=== PATIENT | female | born 1950 | race Caucasian/White ===

== ENCOUNTER 2023-03-06 11:03 | Emergency (ER) | payer MEDICAID, SELFPAY ==
[2023-03-06 11:15] VITALS: BP 162/65; PULSE 71; RESP 16; TEMP 36.1; O2SAT 97; BMI 23.2
--- NOTE | 2023-03-06 11:40 | CRLHL7_ITS ---
For Patients: As a result of the Century Cures Act, medical imaging exams and procedure reports are released immediately into your electronic medical record. You may view this report before your referring provider. If you have questions, please contact your health care provider. INDICATION: Left flank and left upper quadrant pain. Left lower rib pain TECHNIQUE: Axial images were obtained from the diaphragm to the pubic symphysis. Reformats were obtained in the coronal and sagittal plane. IV Contrast: 58 cc Isovue 370 Oral Contrast: None COMPARISON: None. FINDINGS: Lower chest: Basilar discoid atelectasis. Liver: Unremarkable. Normal in size and attenuation. No masses. Gallbladder and bile ducts: Unremarkable. No stones or inflammation. No biliary dilatation. Spleen: Unremarkable. Normal in size without mass. Pancreas: Unremarkable. No mass or inflammation. Adrenal glands: Right adrenal heterogeneous nodule measuring 2.8 x 2.1 centimeters. Kidneys: Unremarkable. No masses, stones, or hydronephrosis. Vasculature: Atherosclerosis without abdominal aortic aneurysm. GI tract: Stomach is unremarkable. No dilated loops of large or small intestine with a large amount of stool within the colon. Underlying colonic diverticulosis. Normal appendix. Pelvis: Fat containing left indirect inguinal hernia. Bones: Facet hypertrophy L5-S1 with 5 millimeter anterolisthesis. IMPRESSION: 1. Colonic diverticulosis without CT evidence of diverticulitis. 2. Right adrenal lesion measuring 2.8 x 2.1 centimeters. Follow-up outpatient adrenal MRI suggested for further characterization. 3. Fat containing left indirect inguinal hernia. Please note that all CT scans at this facility use dose modulation, iterative reconstruction, and/or weight-based dosing when appropriate to reduce radiation dose to as low as reasonably achievable. Dictated by Fred Huertas MD @ 03/06/2023 2:00:17 PM (Electronically Signed)
[2023-03-06 11:59] LABS: Creatinine, Point-of-Care* 0.4 mg/dl (0.6-1.3)
--- NOTE | 2023-03-06 12:07 | ED_ITS ---
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 She states 5 days ago she felt like she was choking on her own saliva low so she hit her abdomen up against the back rest of a chair to get her to cough it up. About 2 hours after that she noticed left flank pain /left rib pain. She states it is very tender to palpation at 1 spot in particular. She has been taking Tylenol and ibuprofen for pain and last took Advil at 6 o'clock this morning. Has had some improvement in her pain. denies nausea, vomiting, weakness, lightheadedness, dizziness, chest pain, shortness of breath, diarrhea, constipation, melena, hematochezia, dysuria. States in June concern is this rib pain that she feels like is getting worse. She thought she heard a crack when it 1st happened. Related Data Home Medications Medication Instructions Recorded Confirmed aspirin 81 mg tablet,delayed 81 mg PO DAILY 03/06/23 03/06/23 release atorvastatin 40 mg tablet 40 mg PO DAILY 03/06/23 03/06/23 lisinopril 10 1 tab PO DAILY 03/06/23 03/06/23 mg-hydrochlorothiazide 12.5 mg tablet metformin 500 mg tablet,extended 1,500 mg PO QPM 03/06/23 03/06/23 release 24 hr Allergies Allergy/AdvReac Type Severity Reaction Status Date / Time No Known Drug Allergies Allergy Verified 03/06/23 11:24 Review of Systems Status of ROS: Reports: 10 or more systems reviewed and unremarkable except as noted in History and below [facility] Medical History Hyperlipidemia ?E78.5 - Hyperlipidemia, unspecified (ICD-10) Hypertension ?I10 - Essential (primary) hypertension (ICD-10) Diabetes ?E11.9 - Type 2 diabetes mellitus without complications (ICD-10) Social History Smoking Status: Never smoker Do you use any of these nicotine containing products: None How often do you have a drink containing alcohol: never How often do you have six or more drinks on one occasion: Never AUDIT-C Alcohol total score: 0 Non-prescribed substance use: denies use Exam Narrative: Exam Narrative: Const: Well-nourished, Well-developed, in mild distress Eyes: PERRL, no conjunctival injection, and symmetrical lids HENT: Atraumatic external nose and ears. Moist mucous membranes. Neck: Symmetric, trachea midline, No thyromegaly. CVS: RRR, No murmurs or gallops. Peripheral pulses 2+ and equal in all extremities RESP: Unlabored respiratory effort. Clear to auscultation bilaterally. GI: For focal tenderness to left upper quadrant/ left flank, appears to be right at the tip of rib 12Nondistended, No rebound or guarding. MSK:Extremities w/o deformity, Normal Active ROM Skin: Warm, Dry. No rashes or lesions. Neuro: Normal Muscle tone, No focal neurological deficits. Psych: Awake, Alert, & Oriented x3. Appropriate mood and affect. Const: Vital Signs, click to edit/add: Vital Signs - 24 hr 03/06/23 11:15 03/06/23 13:55 Temperature 97.0 F L Pulse Rate [Right Pulse Oximeter] 71 69 Respiratory Rate 16 18 Blood Pressure [Ri ght Upper Arm] 162/65 H 148/73 H Pulse Oximetry 97 96 Oxygen Delivery Me thod Room Air Room Air Course Vital Signs Vital signs: Initial Vital Signs Temperature 97.0 F L 03/06/23 11:15 Temperature Source Temporal Artery Scan 03/06/23 11:15 Pulse Rate 71 03/06/23 11:15 Respiratory Rate 16 03/06/23 11:15 Blood Pressure 162/65 H 03/06/23 11:15 Blood Pressure Mean 97 03/06/23 11:15 Blood Pressure Position Sitting 03/06/23 11:15 Pulse Oximetry 97 03/06/23 11:15 Oxygen Delivery Method Room Air 03/06/23 11:15 Vital Signs Temperature 97.0 F L 03/06/23 11:15 Pulse Rate 71 03/06/23 11:15 Respiratory Rate 16 03/06/23 11:15 Blood Pressure 162/65 H 03/06/23 11:15 Pulse Oximetry 97 03/06/23 11:15 Oxygen Delivery Method Room Air 03/06/23 11:15 Temperature 97.0 F L 03/06/23 11:15 Pulse Rate 69 03/06/23 13:55 Respiratory Rate 18 03/06/23 13:55 Blood Pressure 148/73 H 03/06/23 13:55 Pulse Oximetry 96 03/06/23 13:55 Oxygen Delivery Method Room Air 03/06/23 13:55 Medications Administered Medications: Discontinued Medications Generic Name Dose Route Start Last Admin Trade Name Giovanny PRN Reason Stop Dose Admin Ketorolac Tromethamine 15 mg 03/06/23 11:39 03/06/23 13:53 Ketorolac 15 Mg/Ml Inj IVP 03/06/23 11:40 15 mg ONCE ONE Administration Medical Decision Making MDM Narrative Medical decision making narrative: Patient is a 72-year-old female presenting for left rib pain. She is tender what appears to be over the tip of the 12th rib mother cannot say for certain. Pain is also sort of in the left flank and some sort of in the left upper abdomen. Considering she hit her abdomen against the top of the back rest of a chair 5 I do want to make sure there is no internal bleeding. This is unlikely but I will do the CT scan with IV contrast. This will also shows the lower ribs were her pain as and if there is any kidney issues. Ordered lab work including CBC, CMP, lipase. Toradol given for pain lab work returned showing no concerning abnormalities. CT returned showing no concerning findings. Her pain is most likely a muscle strain or possibly a bone bruise. I believe she is safe for discharge at this time. Her daughter are agreeable this plan. I informed them of the incidental right renal cyst and to follow up outpatient. They State they understand. Patient will be discharged home. Lab Data Labs: Lab Results 03/06/23 03/06/23 03/06/23 Range/Units 11:39 11:50 13:35 WBC 7.85 (4.50-11.00) K/uL RBC 4.44 (4.00-5.20) m/uL Hgb 13.6 (12.0-16.0) gm/dL Hct 40.5 (33.0-51.0) % MCV 91 (80-100) fL MCH 31 (26-34) pg MCHC 34 (32-36) gm/dL RDW Coeff of Henny 13.2 (11.5-15.5) % Plt Count 301 (140-440) K/uL Neut % (Auto) 69.8 (42.0-72.0) % Lymph % (Auto) 21.0 (20-44) % [place] % (Auto) 5.4 (0.0-11.0) % Eos % (Auto) 3.1 (0.0-7.0) % Baso % (Auto) 0.6 (0.0-3.0) % Neut # (Auto) 5.48 (1.7-7.0) K/uL Lymph # (Auto) 1.65 (0.90-2.90) K/uL [place] # (Auto) 0.40 (0.00-0.90) K/UL Eos # (Auto) 0.24 (0.00-0.50) K/uL Baso # (Auto) 0.05 (0.00-0.30) K/uL Abs Immat Gran (auto) 0.01 (0.00-0.30) K/uL Imm/Tot Granulo (auto) 0.1 % Sodium 139 (135-149) mmol/L Potassium 3.9 (3.6-5.1) mmol/L Chloride 105 (96-114) mmol/L Carbon Dioxide 23 (20-32) mmol/L Anion Gap 11 (7-15) mEq/L BUN 13 (7-30) mg/dL Creatinine 0.4 L (0.5-1.5) mg/dL Estimated Creat Clear 35.99 Estimated GFR 104 ml/min Glucose 250 H (60-115) mg/dL Calcium 9.6 (8.4-10.6) mg/dL Total Bilirubin 0.4 (0.1-1.5) mg/dL AST 26 (12-35) U/L ALT 22 (4-35) U/L Alkaline Phosphatase 121 (40-150) U/L Total Protein 7.8 (6.0-8.3) g/dL Albumin 4.6 (3.3-5.0) g/dL Lipase 102 (23-300) U/L Urine Color Yellow (Yellow) Urine Appearance Clear (Clear) Urine pH 6.0 (5.0-8.5) Ur Specific Wells 1.025 (1.000-1.030) Urine Protein Negative (Negative) Urine Glucose (UA) 2+ A (Negative) Urine Ketones Trace A (Negative) Urine Blood Negative (Negative) Urine Nitrite Negative (Negative) Urine Bilirubin Negative (Negative) Urine Urobilinogen 0.2 (0.2-1.0) Ur Leukocyte Esterase Trace A (Negative) Urine RBC 0-2 (0-2) Urine WBC 5-10 A (0-5) Ur Squamous Epith Cells Few (None-Few) Urine Bacteria None (None) POC Creatinine 0.4 L (0.6-1.3) mg/dl Imaging Data CT scan abdomen and pelvis: Radiologist's impression: 1. Colonic diverticulosis without CT evidence of diverticulitis. 2. Right adrenal lesion measuring 2.8 x 2.1 centimeters. Follow-up outpatient adrenal MRI suggested for further characterization. 3. Fat containing left indirect inguinal hernia. Please note that all CT scans at this facility use dose modulation, iterative reconstruction, and/or weight-based dosing when appropriate to reduce radiation dose to as low as reasonably achievable. Dictated by Fred Huertas MD @ 03/06/2023 2:00:17 PM Discharge Plan Discharge Clinical Impression: Acute flank pain Patient Disposition: Home, Self-Care Condition: Stable Additional Instructions: there is no signs of fractures, bleeding, kidney stones. I believe your symptoms are musculoskeletal in origin. Return to the emergency department for new or worsening symptoms Of note there is an incidental lesion seen on your right adrenal gland. Is recommend to follow up with your primary care provider for an outpatient MRI for better characterization. Prescriptions: No Action atorvastatin 40 mg tablet 40 mg PO DAILY aspirin 81 mg tablet,delayed release (DR/EC) 81 mg PO DAILY lisinopril-hydrochlorothiazide 10-12.5 mg tablet 1 tab PO DAILY metformin 500 mg tablet extended release 24 hr 1,500 mg PO QPM Follow Up/Referrals: Provider,Not a Local [Primary Care Provider] - Stand Alone Forms: [employer] Info Instructions
[2023-03-06 12:27] LABS: Basophils Absolute Auto 0.05 K/uL (0.00-0.30); Basophils Percent Auto 0.6 % (0.0-3.0); Eosinophils Absolute Auto 0.24 K/uL (0.00-0.50); Eosinophils Percent Auto 3.1 % (0.0-7.0); Hematocrit 40.5 % (33.0-51.0); Hemoglobin* 13.6 gm/dL (12.0-16.0); Immature Granulocytes Abs Auto 0.01 K/uL (0.00-0.30); Immature Granulocytes Pct Auto 0.1 %; Lymphocytes Absolute Auto 1.65 K/uL (0.90-2.90); Mean Corpuscular HGB Conc 34 gm/dL (32-36); Mean Corpuscular Hemoglobin 31 pg (26-34); Mean Corpuscular Volume 91 fL (80-100); Monocytes Percent Auto 5.4 % (0.0-11.0); Neutrophils Absolute Auto 5.48 K/uL (1.7-7.0); Neutrophils Percent Auto 69.8 % (42.0-72.0); Platelet Count* 301 K/uL (140-440); RDW Coefficient of Variation % 13.2 % (11.5-15.5); Red Blood Count 4.44 m/uL (4.00-5.20); White Blood Count* 7.85 K/uL (4.50-11.00)
[2023-03-06 12:33] LABS: Slide Review Reflex No
[2023-03-06 12:41] LABS: Albumin* 4.6 g/dL (3.3-5.0); Chloride* 105 mmol/L (96-114); Sodium* 139 mmol/L (135-149)
[2023-03-06 12:42] LABS: Potassium* 3.9 mmol/L (3.6-5.1)
--- OUTSIDE RECORDS SUMMARY | 2023-03-06 12:43 | XMS_ITS | Continuity of Care Document ---
Author Name Unknown Address [address] [place] [id number] Phone [phone] Organization [place] [facility] Address [address] [place] [address] [place] [address] Assessment No assessment recorded. Plan of Treatment Reminders Order Date Submit Date Provider Last Modified By Organization Details Last Modified Time Details Appointments LAB WORK 2023 11:30A M Lab Not available Not available Not available Telephone Consult 2023 01:15P M Sophie Chester SENIOR INFORMATION SECURITY ENGINEER Not available Not available Not available Lab glycohemo globin, total, blood [address], [address] [place] [address] [place], [address], 12/26/2022 14:28:31 microalbu min/creat inine, ratio panel, urine [address], [address] [place] [address] [place], [address], 12/26/2022 14:28:30 BMP, blood [address], [address] [place] [address], [address], 12/26/2022 14:30:39 lipid panel, serum [address], [address] [place] [address] [place], [address], 12/26/2022 14:30:39 Referral None recorded. Procedures None recorded. Surgeries None recorded. Imaging None recorded. Medication Orders metformin ER 500 mg tablet,ex tended release 24 hr 2022 023 [email or web address] [facility], [address], [place], [address], 12/28/2022 17:17:08 lisinopri l 10 mg-hydroc hlorothia zide 12.5 mg tablet 2022 023 [facility] [place], [address], [place], [address], 12/27/2022 11:19:51 atorvasta tin 40 mg tablet 2022 023 [facility] [place], [address], [place], [address], 12/27/2022 11:19:35 Patient TargetsNo targets recorded. Patient Instructions Encounter Date Encounter Id Patient Instructions Last Modified By Organization Details Last Modified Time 12/26/2022 [id number] Declines iFOBT, mammogram. [email or web address] Not available 12/26/2022 14:30:51 Reason for Referral [facility] Referral for Type 2 diabetes mellitus without complication needs a glucometer, check BS 2-3 times a week before breakfast Referring Physician: Cheng Christian, Internal Medicine, Encounter Date: 03/03/2020 [employer] Security Consultant Referral for Typ e 2 diabetes mellitus without complication Referring Physician: Cheng Christian Internal Medicine, Encounter Date: 11/18/2021 Problems Name Status Onset Date Resolution Date Notes Provider Name and Address Organization Details Recorded Time Type 2 diabetes mellitus Active 03/31/19 21 Cheng Christian MD [address] [place], [address] , [facility] 11/17/2021 11:36:31 Essential hypertension Active 03/31/19 21 Cheng Christian MD [address] [place], [address] , [facility] 11/17/2021 11:36:21 Hyperlipidemia Active 03/31/19 21 Cheng Christian MD [address] [place], [address] , [facility] 11/17/2021 11:36:26 Problem Notes None recorded. Procedures Surgical History Date Name Laterality Status Provider Name and Address Organization Details Recorded Time repair of umbilical hernia completed Arin العلي NP [address] [place], [address], [facility] 04/22/2020 16:33:51 Imaging Results None recorded. Procedure Notes None recorded. Medical Equipment None Reported. Allergies No known drug allergies Medications Name Sig Start Date Stop Date Status Note LastModified by Organization Details LastModified Time eucerin cre APPLY DIRECTED 12/21 completed Not Available Not Available Not Available atorvasta tin 40 mg tablet TAKE 1 TABLET BY MOUTH EVERY DAY. 2022 active Not Available Not Available Not Avai lable metformin 500 mg tablet TAKE 1 TABLET BY MOUTH 3 TIMES EVERY DAY AT START OF EACH MEAL 12/26 completed Not Available Not Available Not Available atorvasta tin 20 mg tablet take 1 tablet by oral route every day 03/16 completed Not Available Not Available Not Available lovastati n 40 mg tablet take 1 tablet by oral route qpm 09/18 completed Not Available Not Available Not Available Eucerin topical cream Apply 1 applicat ion by topical route. 12/26 completed Not Available Not Available Not Available aspirin 81 mg tablet,de layed release TAKE 1 TABLET BY MOUTH DAILY active Not Available Not Available No t Available simvastat in 20 mg tablet take 1 tablet by oral route every day before sleep 04/04 completed Not Available Not Available Not Available lisinopri l 10 mg tablet TAKE 1 TABLET BY MOUTH EVERY DAY 12/26 completed Not Available Not Available Not Available hydrochlo rothiazid e 12.5 mg capsule TAKE 1 CAPSULE BY MOUTH DAILY 12/26 completed Not Available Not Available Not Available aspirin 81 mg tablet take 1 tablet by oral route every day 02/28 completed Not Available Not Available Not Available lisinopri l 5 mg tablet TAKE 1 TABLET BY MOUTH EVERY DAY 02/28 completed Not Available Not Available Not Available lisinopri l 10 mg-hydroc hlorothia zide 12.5 mg tablet Take 1 tablet every day by oral route. 2022 active Not Available Not Available Not Avai labjono lovastati n 20 mg tablet take 1 tablet by oral route every day with the evening meal 11/19 completed Not Available Not Available Not Available metformin ER 500 mg tablet,ex tended release 24 hr Take 3 tablets PO qpm 2022 active Decrease d to 2 tablets 12/28/22 Not Available Not Available Not Available hydrochlo rothiazid e 12.5 mg tablet take 1 tablet by oral route every day 06/30 completed Not Available Not Available Not Available diclofena c 1 % topical gel APPLY 2 GRAMS TO THE AFFECTED AREA(S) BY TOPICAL ROUTE 4 TIMES PER DAY active Not Available Not Available No t Available Vitals Date Recorded Body height Body mass index (BMI) Body weight Body temperature Oxygen saturation Oxygen saturation in Arterial blood by Pulse oximetry Heart rate Systolic blood pressure Diastolic blood pressure Provider Name and Address Organization Details Last Updated DateTime 3 154.94 cm 22.4 kg/m2 58075.3 4 g 97 [degF] 99 % 99 % 73 /min 159 mm[Hg] 75 mm[Hg] Alia marshall [facility] elicit [facility] 3 10:17:53 Date Recorded Respiratory rate Systolic blood pressure Diastolic blood pressure Provider Name and Address Organization Details Last Updated DateTime 12/26/2022 18 /min 120 mm[Hg] 70 mm[Hg] Sophie Chester NP [address] [place], [address] 12/26/2022 10:52:50 Social History Question Answer Notes LastModified by Organizat ion Details LastModified Time Tobacco Smoking Status Never Smoker Arin العلي NP [address] [place], [address], [facility] 04/22/2020 16:33:06 What Is Your Level Of Alcohol Consumption? None lenó Information not available 11/18/2021 Are You Currently Employed? No Works At Home león Information not available 11/18/2021 What Type Of Diet Are You Following? DIABETIC león Information not available 11/18/2021 Which Illicit Or Recreational Drugs Have You Used? None Information not available 04/22/2020 Have There Been Any Changes To Your Family Or Social Situation? No león Information not available 11/18/2021 Live Alone Or With Others? With Others And Daughter Information not available 04/22/2020 What Is Your Relationship Status? Five In The Household león Information not available 11/18/2021 Do You Feel Stressed (tense, Restless, Nervous, Or Anxious, Or Unable To Sleep At Night)? [id number] león Information not available 11/18/2021 Sex: Female Functional Status Question Answer Note LastModified by Organizat ion Details LastModified Time What is your exercise level? Occasional león Information not available 11/18/2021 Mental Status None recorded. Family History Relationship Description Onset Age of this Age Resolved Age Notes Notes:both parents have , mother had diabetes, both lived long prosperous lives, seven siblings, health status unknown Medical History No medical history recorded. Gynecological HistoryNo gynecological history recorded. Obstetrics History GPAL:G 5 P 0 0 0 5 Type Value Living 5 Total 5 Past Encounters Encounter ID Performer Location Encounter Start Date Encounter Closed Date Diagnosis/Indication [id number] Sophie Chester NP [facility] [address] [place] [address] 12/26/2022 10:13:32 12/26/2022 11:05:01 Type 2 diabetes mellitus Essential hypertension Hyperlipidemia Health Concerns Section Related Observation LastModified by Organization Detai ls LastModified Time None Recorded Concern Status LastModified by Organization Details LastModified Time None Recorded Payers None recorded. Notes Date Note Type Note Provider Name and Address Organization Details Recorded Time 12/26/2022 text/html HPI Notes: Hypertension IM/FM Reported by patient. 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 Patient formerly followed by Dr. Christian who has retired. Feels well; no concerns. Had a period 2 months ago where she was not taking her medications for several weeks. 20 days ago did have some itching in her vulva; it has improved. Only taking Metformin 1g day since she takes with meals and does not eat dinner (prescribed as 1 tab prior to meals). Home BGs since re-starting medications: Typically 110, 140mg/dl before and after. After meals now 170s (was in 200s). Right thumb arthritis. Lab Review: 12/20/22 : Spot BG 254. TC is 218; LDL is 136. CBC is WNL. A1C 11%. Last A1C from 06/12 was 8.1% Last urine M:A negative 11/11. Screening: No iFOBT, mammogram or pap smear on file or available in [facility]. Declines iFOBT, mammo. Pap no longer needed. Sophie Chester, [facility] [address] [place], [address], [facility] 12/26/2022 14:31:52 OBGyn Episode No OBEpisode recorded.
--- OUTSIDE RECORDS SUMMARY | 2023-03-06 12:43 | XMS_ITS | Clinical Summary ---
Author Name Unknown Organization [facility] Address [place], [place] [address] Care Team Providers Care Head Refrigeration Engineer Name Role Phone Sophie Chester RN, WAGE AND SALARY ADMINISTRATOR Primary Care Provide r Allergies No known active allergies Medications Medication Sig Dispensed Refills Start Date End Date Status METFORMIN 500 MG TAB 1 tablet three times per day 0 09/24/2007 Active LOVASTATIN 20 MG TAB take 1 tablet (20 mg) by oral route once daily with evening meal 0 09/24/2007 Active ASPIRIN 81 MG TAB, DELAYED RELEASE take 1 tablet (81 mg) by oral route once daily 0 09/24/2007 Active PREMARIN 0.625 MG/G VAGINAL CREAM 1 applicator vaginally every night x 4, then 3 times per week 3 mo supply 1 09/11/2008 Active TERBINAFINE 250 MG TAB TAKE 1 TABLET (250 MG) BY ORAL ROUTE ONCE DAILY 30 Each 2 11/24/2008 Active Active Problems Problem Noted Date Diagnosed Date Post-menopausal atrophic vaginitis 09/11/2008 Diabetes 09/11/2008 Encounters Date Type Department Care Team Description 03/06/2023 Nurse Triage [facility] Centralized Nurse Triage Parker Quiroga MD Flank Pain 12/23/2022 Lab Requisition [facility] [address] [place] [address] Bobby Rucker MD 12/19/2022 Lab Requisition [facility] [address] [place] [address] Cheng Christian MD from Last 3 Months Family History Medical History Relation Name Comments Good Health Father Good Health Mother Relation Name Status Comments Father Mother Social History Tobacco Use Types Packs/Day Years Used Date Smoking Tobacco: Never Alcohol Use Standard Drinks/Week Comments No 0 (1 standard drink = 0.6 oz pur e alcohol) Sex and Gender Information Value Date Recorded Sex Assigned at Not on file Gender Identity Not on file Sexual Orientation Not on file Obstetrics History Para Term AB IAB SAB Ectopic Multiple Livin g Live Births 5 5 5 Date Outcome GA Total Labor Labor/2nd/3rd Weight Sex Delivery Anes PTL Yina A1 A5 Name Cl in Para Para Para Para Para Last Filed Vital Signs Vital Sign Reading Time Taken Comments Blood Pressure 116/64 09/11/2008 10:09 AM CDT Pulse 76 09/11/2008 10:09 AM CDT Temperature - - Respiratory Rate 18 09/11/2008 10:09 AM CDT Oxygen Saturation - - Inhaled Oxygen Concentration - - Weight 55.5 kg (122 lb 6.4 oz) 09/11/2008 10:09 AM CDT Height - - Body Mass Index - - Plan of Treatment Health Maintenance Due Date Last Done Comments COVID-19 vaccine series (#1) 1949 Tdap 1960 Depression screening for age 12+ 1961 BMI (ht and wt on same day) for age 18+ 05/22/1967 Hepatitis C screening for ag e 18-79 05/22/1967 Tetanus booster 1969 Colonoscopy through age 75 1994 Mammogram for age 45-75 1994 Zoster (shingles) series for age 50+ (1 of 2) 05/22/1999 DEXA/DXA scan for age 65+ 2014 Pneumococcal series for age 65+ (1 of 1 - PCV) 2014 Influenza for age 65+ 10/21/2022 Lipids for age 45-75 12/21/2027 12/20/2022, 06/07/2022, 11/04/2021, Additional history exists Procedures Procedure Name Priority Date/Time Associated Diagnosis Comments HEMOGLOBIN A1C Routine 12/20/2022 9:37 AM CDT Type 2 diabetes mellitus with hyperglycemia (HC) LIPID PANEL Routine 12/20/2022 9:37 AM CDT COMP METABOLIC PANEL Routine 12/20/2022 9:37 AM CDT CBC W PLT NO DIFF Routine 12/20/2022 9:3 7 AM CDT from Last 3 Months Results * CBC W PLT NO DIFF (12/20/2022 9:37 AM CDT) WHITE BLOOD COUNT 7.8 4.5 - 11.0 thou/cu mm 12/20/2022 9:43 AM CDT [facility] RED BLOOD COUNT 4.44 4.00 - 5.20 mil/cu mm 12/20/2022 9:43 AM CDT [facility] HEMOGLOBIN 13.6 12.0 - 16.0 g/dL 12/20/2022 9:43 AM CDT [facility] HEMATOCRIT 40.0 33.0 - 51.0 % 12/20/2022 9:43 AM CDT [facility] MCV 90 80 - 100 fL 12/20/2022 9:43 AM CDT [facility] MCH 30.6 26.0 - 34.0 pg 12/20/2022 9:43 AM CDT [facility] MCHC 34.0 32.0 - 36.0 g/dL 12/20/2022 9:43 AM CDT [facility] RDW 13.5 11.5 - 15.5 % 12/20/2022 9:43 AM CDT [facility] PLATELET COUNT 285 140 - 440 thou/cu mm 12/20/2022 9:43 AM CDT [facility] MPV 10.3 6.5 - 11.0 fL 12/20/2022 9:43 AM CDT [facility] Blood BLOOD SPECIMEN / Unknown Venipuncture / Unknown 12/20/2022 9:37 AM CDT 12/20/2022 9:38 AM CDT Cheng Christian MD HEMATOLOGY [facility] [address] [place] [address] * (ABNORMAL) HEMOGLOBIN A1C MONITORING (POCT) (12/20/2022 9:37 AM CDT) [facility] HEMOGLOBIN A1C MONITORING (POCT) 11.0(H) <=6.4 % 12/23/2022 11:[address] [facility] Blood BLOOD SPECIMEN / Unknown Add On / Unknown 12/20/2022 9:37 AM CDT 12/23/2022 11:39 AM CDT [facility] LABORATORY - 12/23/2022 11:50 AM CDT ? (<=6.9%) ? Indicates good control ? (7.0% to 7.9%) ? Indicates fair control ? (>=8.0%) ? Indicates poor control ?? NOTE: ??These thresholds are guidelines and ?individual targets may vary. Falsely low levels may be seen with: Recent Transfusion, Recent Significant Blood Loss, Hemolytic Diseases, or Falsely elevated levels may be seen with: Untreated Anemias, Splenectomy ? Bobby Rucker MD CHEMISTRY [facility] [address] [place] [address] * (ABNORMAL) LIPID PANEL (12/20/2022 9:37 AM CDT) [facility] CHOLESTEROL,TOTAL 218(H) 100 - 199 mg/dL 12/20/2022 11:55 AM [facility] Comment: Cholesterol, Total Reference Ranges Desirable <200 mg/dL Borderline 200-239 mg/dL High >=240 mg/dL TRIGLYCERIDES 179(H) <150 mg/dL 12/20/2022 11:55 AM [facility] HDL CHOLESTEROL 46 >40 mg/dL 11:55 AM [facility] NON-HDL CHOLESTEROL 172(H) <145 mg/dl 12/20/2022 11:55 AM [facility] CHOL/HDL RATIO 4.74(H) <4.50 12/20/2022 11:55 AM [facility] LDL CHOLESTEROL 136(H) <=130 mg/dL 12/20/2022 11:55 AM [facility] VLDL CHOLESTEROL 36(H) <=30 mg/dL 12/20/2022 11:55 AM [facility] PROVIDER ORDERED STATUS RANDOM 12/20/2022 11:55 AM [facility] Blood BLOOD SPECIMEN / Unknown Venipuncture / Unknown 12/20/2022 9:37 AM CDT 12/20/2022 9:38 AM T Cheng Christian MD CHEMISTRY [facility] [address] [place] [address] * (ABNORMAL) COMP METABOLIC PANEL (12/20/2022 9:37 AM CDT) SODIUM 136 136 - 145 mmol/L 12/20/2022 11:55 AM [facility] POTASSIUM 4.0 3.5 - 5.1 mmol/L 12/20/2022 11:55 AM [facility] CHLORIDE 102 98 - 107 mmol/L 12/20/2022 11:55 AM [facility] CO2,TOTAL 27 22 - 29 mmol/L 12/20/2022 11:55 AM [facility] ANION GAP 7 5 - 18 12/20/2022 11:55 AM [facility] GLUCOSE 294(H) 70 - 99 mg/dL 12/20/2022 11:55 AM [facility] CALCIUM 9.5 8.8 - 10.2 mg/dL 12/20/2022 11:55 AM [facility] BUN 14 8 - 23 mg/dL 12/20/2022 11:55 AM [facility] CREATININE 0.54 0.50 - 0.90 mg/dL 12/20/2022 11:55 AM [facility] BUN/CREAT RATIO 26(H) 10 - 20 11:55 AM [facility] eGFR >90 >90 mL/min/1.7 3m2 12/20/2022 11:55 AM [facility] Comment:As of 2021, eG FR is calculated by the CKD-EPI creatinine equation without race adjustment. ??eGFR can be influenced by muscle mass, exercise, and diet. ??The reported eGFR is an estimation only and is only applicable if the renal function is stable. ALBUMIN 4.6 4.0 - 4.9 g/dL 12/20/2022 11:55 AM [facility] PROTEIN,TOTAL 7.1 6.0 - 8.0 g/dL 12/20/2022 11:55 AM [facility] BILIRUBIN,TOTAL 0.4 0.0 - 1.2 mg/dL 12/20/2022 11:55 AM [facility] ALK PHOSPHATASE 162(H) 35 - 104 IU/L 12/20/2022 11:55 AM [facility] ALT (SGPT) 23 10 - 35 IU/L 12/20/2022 11:55 AM [facility] AST (SGOT) 22 10 - 35 IU/L 12/20/2022 11:55 AM [facility] Blood BLOOD SPECIMEN / Unknown Venipuncture / Unknown 12/20/2022 9:37 AM CDT 12/20/2022 9:38 AM T Cheng Christian MD CHEMISTRY Performing Organization Address City/State/[facility] Co de Phone Number [facility] [address] [place] [address] from Last 3 Months Care Teams Head Refrigeration Engineer Relationship Specialty Start Date End Date Sophie Chester, [place], WAGE AND SALARY ADMINISTRATOR [address] [place] [address] PCP - General Nurse Practitioner 09/04/14
--- OUTSIDE RECORDS SUMMARY | 2023-03-06 12:43 | XMS_ITS | Data Portability ---
Author Name Unknown Address [address] [place] [id number] Phone [phone] Organization [place] [facility] Address [address] [place] [address] [place] [address] Assessment Encounter Date Assessment Date Assessment LastModified by Organization Details LastModified Time 06/30/2020 06/30/2020 doing well león Not available 12/2020 17:54:06 Plan of Treatment Reminders Order Date Submit Date Provider Last Modified By Organization Details Last Modified Time Details Appointments LAB WORK 2023 11:30A M Lab Not available Not available Not available Teleph one Consul t 2023 01:15P M Sophie Henrik TRUCK 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 Not available Not available Not available Lab glycoh emoglo bin, total, blood [address] Office, [address] [place] [address], [address], 12/26/2022 14:28:31 microa lbumin /creat inine, ratio panel, urine [address], [address] [place] [address], [address], 12/26/2022 14:28:30 BMP, blood [address], [address] [place] [address], [address], 12/26/2022 14:30:39 lipid panel, serum [address] Office, [address] [place], [place] [address], [address], 12/26/2022 14:30:39 CBC 2022 023 [facility] Office, [address] [place], [place] [address], [address], 12/20/2022 12:16:07 CMP, serum or plasma 2022 023 [facility] Office, [address] [place], [place] [address], [address], 12/20/2022 13:44:01 lipid panel, serum 2022 023 [facility] Office, [address] [place], [place] [address], [address], 12/20/2022 13:44:01 CBC 2021 023 [facility] Office, [address] [place], [place] [address], [address], 06/08/2022 12:35:02 CMP, serum or plasma 2021 023 [facility], [address] [place], [place] [address], [address], 06/08/2022 12:35:02 lipid panel, serum 2021 023 [facility], [address] [place] [address] [place], [address], 06/10/2022 12:58:04 CBC 2021 022 [facility], [address] [place] [address], [address], 11/09/2021 17:41:17 CMP, serum or plasma 2021 022 [facility], [address] [place] [address], [address], 11/09/2021 17:41:16 lipid panel, blood 2021 022 [facility], [address] [place] [address], [address], 11/09/2021 17:41:17 hemogl obin A1C/he moglob in total, QN, blood 2021 022 [facility], [address] [place] [address], [address], 11/09/2021 17:41:56 microa lbumin , urine 2021 [facility], [address] [place] [address], [address], 11/09/2021 23:46:15 fecal occult blood, immuno assay, stool 2021 022 [facility], [address] [place] [address], [address], 02/03/2022 15:47:32 CBC w/ auto diff 2020 [facility] Not available 12/17/2020 12:02:14 CMP, serum or plasma 2020 [facility] Not available 12/18/2020 10:13:46 lipid panel, blood 2020 021 [facility], [address] [place] [address], [address], 12/18/2020 10:13:46 HbA1c (hemog lobin A1c), blood 2020 021 [facility], [address] [place] [address], [address], 12/18/2020 10:14:36 microa lbumin , urine 2020 021 [facility], [address] [place] [address], [address], 12/18/2020 10:13:46 CBC w/ auto diff 2020 021 [facility] Not available 06/22/2020 17:08:19 CMP, serum or plasma 2020 021 [facility] Not available 06/22/2020 17:08:18 lipid panel, serum 2020 021 [facility] Not available 06/23/2020 11:02:25 hemogl obin A1C/he moglob in total, QN, blood 2020 021 [facility] Not available 06/23/2020 12:10:11 microa lbumin /creat inine, ratio panel, urine 2020 [facility] Not available 06/22/2020 17:08:18 Referral [facility] care referr al 2020 021 [email or web address] Lorraine Loo, [address] [place] [address], [place], [address], 03/04/2020 10:51:50 Procedures None record ed. Surgeries None record ed. Imaging MAMMO, screen ing, bilate ral - Spanis h speaki ng 2020 021 [email or web address] Not available 04/22/2020 19:43:49 Medication Orders metfor min ER 500 mg tablet ,exten ded releas e 24 hr [id number] [place] [address], [address], [place], [address], 12/28/2022 17:17:08 lisino pril 10 mg-hyd rochlo rothia zide 12.[address] [facility], [address], [place], [address], 12/27/2022 11:19:51 atorva statin 40 mg tablet [address] [facility], [address], [place], [address], 12/27/2022 11:19:35 Adult Low Dose Aspiri n 81 mg tablet ,delay ed releas e 2020 [facility], [address], [place], [address], 12/24/2020 10:17:37 atorva statin [address] [facility], [address], [place], [address], 12/24/2020 10:17:38 hydroc hlorot hiazid e 12.5 mg capsul e [email or web address], [address], [place], [address], 12/26/2022 10:53:52 lisino pril 10 mg tablet [address], [address], [place], [address], 12/26/2022 10:53:55 metfor min 500 mg tablet [address], [address], [place], [address], 12/26/2022 10:49:48 Euceri n topica l cream [address], [address], [place], [address], 12/26/2022 10:55:03 atorva statin [address] [facility], [address], [place], [address], 06/30/2020 17:53:47 hydroc hlorot hiazid e 12.5 mg capsul e [address] [place], [address], [place], [address], 12/26/2022 10:53:52 lisino pril 10 mg tablet [address] [place], [address], [place], [address], 12/26/2022 10:53:55 metfor min 500 mg tablet [address] [place], [address], [place], [address], 12/26/2022 10:49:48 hydroc hlorot hiazid e 12.5 mg capsul e [address], [address], [place], [address], 12/26/2022 10:53:52 Adult Low Dose Aspiri n 81 mg tablet ,delay ed releas e 2020 021 [facility], [address], [place], [address], 03/03/2020 19:41:47 atorva statin 40 mg tablet 2020 021 [facility], [address], [place], [address], 03/03/2020 19:41:48 lisino pril 10 mg tablet [address] [place], [address], [place], [address], 12/26/2022 10:53:55 metfor min 500 mg tablet 2020 021 [email or web address] [facility] [place], [address], [place], [address], 12/26/2022 10:49:48 Patient Targets Encounter Date Encounter Id Patient Goals Patient Target Last Modified By Organization Details Last Modified Time stay active león Not available 2022 15:32:28 Patient Instructions Encounter Date Encounter Id Patient Instructions Last Modified By Organization Details Last Modified Time 12/26/2022 [id number] Declines iFOBT, mammogram. [email or web address] Not available 12/26/2022 14:30:51 11/18/2021 [id number] keep weight down , will call about mammograms león Not available 11/19/2021 11:38:32 07/01/2021 [id number] eat regular meals, get booster, check feet daily and report any problems león Not available 07/01/2021 10:29:53 12/24/2020 [id number] think about flu shot with booster león Not available 12/24/2020 12:07:33 eucerin for irritated patch on left flank león Not available 12/24/2020 12:08:01 Reason for Referral [facility] Referral for Type 2 diabetes mellitus without complication needs a glucometer, check BS 2-3 times a week before breakfast Referring Physician: Cheng Christian, Internal Medicine, Encounter Date: 03/03/2020 Vice President Integrated Referral for Typ e 2 diabetes mellitus without complication Referring Physician: Cheng Christian, Internal Medicine, Encounter Date: 11/18/2021 Results Created Date Observation Date Name Description Value Unit Range Abnormal Flag LastModifiedBy Organization Detail LastModifiedTime 12/23/2022 glyco hemog lobin , total , blood A1C 11.0 high Not Available [facility] [address], [place], [address], 12/23/2022 13:04:56 06/23/19 21 06/22/2020 hemog lobin A1C/h emogl obin total , QN, blood hemoglobin A1C 6.9 Not Available [facility] [address], [place], [address], 06/23/2020 12:06:25 06/23/19 21 06/22/2020 CBC w/ auto diff creatinine 0.65 Not Available Not Available 0 06/22/2020 17:08:18 06/23/19 21 06/22/2020 CBC w/ auto diff ALT 15 Not Available Not Available 04/2020 17:08:18 06/23/19 21 06/22/2020 CBC w/ auto diff microalbumin ratio 11.0 Not Available Not Available 17:08:18 06/23/19 21 06/22/2020 CBC w/ auto diff white blood count 6.2 Not Available Not Available 17:08:18 06/23/19 21 06/22/2020 CBC w/ auto diff hemoglobin 13.1 Not Available Not Available 0 06/22/2020 17:08:18 06/23/19 21 06/22/2020 CBC w/ auto diff platelet count 287 Not Available Not Available 17:08:18 06/23/19 21 06/22/2020 CBC w/ auto diff total cholesterol 189 Not Available Not Available 06/22/2020 17:08:18 06/23/19 21 06/22/2020 CBC w/ auto diff triglyceride s 184 Not Available Not Available 17:08:18 06/23/19 21 06/22/2020 CBC w/ auto diff HDL 47 Not Available Not Available 04/2020 17:08:18 06/23/19 21 06/22/2020 CBC w/ auto diff LDL 105 Not Available Not Available 04/2020 17:08:18 06/23/19 21 06/22/2020 micro album in/cr eatin ine, ratio panel , urine creatinine 0.65 Not Available Not Available 0 06/22/2020 17:08:18 06/23/19 21 06/22/2020 micro album in/cr eatin ine, ratio panel , urine ALT 15 Not Available Not Available 04/2020 17:08:18 06/23/19 21 06/22/2020 micro album in/cr eatin ine, ratio panel , urine microalbumin ratio 11.0 Not Available Not Available 17:08:18 06/23/19 21 06/22/2020 micro album in/cr eatin ine, ratio panel , urine white blood count 6.2 Not Available Not Available 17:08:18 06/23/19 21 06/22/2020 micro album in/cr eatin ine, ratio panel , urine hemoglobin 13.1 Not Available Not Available 0 06/22/2020 17:08:18 06/23/19 21 06/22/2020 micro album in/cr eatin ine, ratio panel , urine platelet count 287 Not Available Not Available 17:08:18 06/23/19 21 06/22/2020 micro album in/cr eatin ine, ratio panel , urine total cholesterol 189 Not Available Not Available 06/22/2020 17:08:18 06/23/19 21 06/22/2020 micro album in/cr eatin ine, ratio panel , urine triglyceride s 184 Not Available Not Available 17:08:18 06/23/19 21 06/22/2020 micro album in/cr eatin ine, ratio panel , urine HDL 47 Not Available Not Available 04/2020 17:08:18 06/23/19 21 06/22/2020 micro album in/cr eatin ine, ratio panel , urine LDL 105 Not Available Not Available 04/2020 17:08:18 06/23/19 21 06/22/2020 CMP, serum or plasm a creatinine 0.65 Not Available Not Available 0 06/22/2020 16:14:58 06/23/19 21 06/22/2020 CMP, serum or plasm a ALT 15 Not Available Not Available 04/2020 16:14:58 06/23/19 21 06/22/2020 CMP, serum or plasm a microalbumin ratio 11.0 Not Available Not Available 16:14:58 06/23/19 21 06/22/2020 CMP, serum or plasm a white blood count 6.2 Not Available Not Available 16:14:58 05/03/06/22/2020 CMP, serum or plasm a hemoglobin 13.1 Not Available Not Available 0 06/22/2020 16:14:58 06/23/19 21 06/22/2020 CMP, serum or plasm a platelet count 287 Not Available Not Available 16:14:58 06/23/19 21 06/22/2020 CMP, serum or plasm a total cholesterol 189 Not Available Not Available 06/22/2020 16:14:58 06/23/19 21 06/22/2020 CMP, serum or plasm a triglyceride s 184 Not Available Not Available 16:14:58 06/23/19 21 06/22/2020 CMP, serum or plasm a HDL 47 Not Available Not Available 04/2020 16:14:58 06/23/19 21 06/22/2020 CMP, serum or plasm a LDL 105 Not Available Not Available 04/2020 16:14:58 06/23/19 21 06/22/2020 lipid panel , serum creatinine 0.65 Not Available Not Available 0 06/23/2020 11:02:25 06/23/19 21 06/22/2020 lipid panel , serum ALT 15 Not Available Not Available 05/2020 11:02:25 06/23/19 21 06/22/2020 lipid panel , serum microalbumin ratio 11.0 Not Available Not Available 11:02:25 06/23/19 21 06/22/2020 lipid panel , serum white blood count 6.2 Not Available Not Available 11:02:25 06/23/19 21 06/22/2020 lipid panel , serum hemoglobin 13.1 Not Available Not Available 0 06/23/2020 11:02:25 06/23/19 21 06/22/2020 lipid panel , serum platelet count 287 Not Available Not Available 11:02:25 06/23/19 21 06/22/2020 lipid panel , serum total cholesterol 189 Not Available Not Available 06/23/2020 11:02:25 06/23/19 21 06/22/2020 lipid panel , serum triglyceride s 184 Not Available Not Available 11:02:25 05/03/06/22/2020 lipid panel , serum HDL 47 Not Available Not Available 05/2020 11:02:25 06/23/19 21 06/22/2020 lipid panel , serum LDL 105 Not Available Not Available 05/2020 11:02:25 12/17/19 21 12/16/2020 micro album in, urine creatinine 0.65 Not Available [facility] [address] [place] [address], [address], 12/18/2020 10:13:46 12/17/1912/16/2020 micro album in, urine ALT 14 Not Available [facility] [address] [place] [address], [address], 12/18/2020 10:13:46 12/17/1912/16/2020 micro album in, urine cholesterol total 166 Not Available [address], [address], 12/18/2020 10:13:46 12/17/1912/16/2020 micro album in, urine triglyceride 167 high Not Available [address], [address], 12/18/2020 10:13:46 12/17/1912/16/2020 micro album in, urine HDL 43 Not Available [facility] [address] [place] [address], [address], 12/18/2020 10:13:46 12/17/19 21 12/16/2020 micro album in, urine LDL 90 Not Available [facility] [address] [place] [address], [address], 12/18/2020 10:13:46 12/17/19 21 12/16/2020 micro album in, urine microalbumin ratio 26.3 Not Available [address], [address], 12/18/2020 10:13:46 12/17/1912/16/2020 lipid panel , blood creatinine 0.65 Not Available [facility] [address] [place] [address], [address], 12/18/2020 10:13:46 12/17/1912/16/2020 lipid panel , blood ALT 14 Not Available [facility] [address] [place] [address], [address], 12/18/2020 10:13:46 12/17/1912/16/2020 lipid panel , blood cholesterol total 166 Not Available [facility] [address] [place] [address], [address], 12/18/2020 10:13:46 12/17/1912/16/2020 lipid panel , blood triglyceride 167 high Not Available [facility] Office [address] [place] [address], [address], 12/18/2020 10:13:46 12/17/1912/16/2020 lipid panel , blood HDL 43 Not Available [facility] [address] [place] [address], [address], 12/18/2020 10:13:46 12/17/1912/16/2020 lipid panel , blood LDL 90 Not Available [facility] [address] [place] [address], [address], 12/18/2020 10:13:46 12/17/1912/16/2020 lipid panel , blood microalbumin ratio 26.3 Not Available [facility] [address] [place] [address], [address], 12/18/2020 10:13:46 12/17/1912/16/2020 CMP, serum or plasm a creatinine 0.65 Not Available [facility] Office [address] [place] [address], [address], 12/17/2020 12:32:27 12/17/1912/16/2020 CMP, serum or plasm a ALT 14 Not Available [facility] [address] [place] [address], [address], 12/17/2020 12:32:27 12/17/1912/16/2020 CMP, serum or plasm a cholesterol total 166 Not Available [facility] [address] [place] [address], [address], 12/17/2020 12:32:27 12/17/1912/16/2020 CMP, serum or plasm a triglyceride 167 high Not Available [address], [address], 12/17/2020 12:32:27 12/17/1912/16/2020 CMP, serum or plasm a HDL 43 Not Available [facility] [address] [place] [address], [address], 12/17/2020 12:32:27 12/17/1912/16/2020 CMP, serum or plasm a LDL 90 Not Available [facility] [address] [place] [address], [address], 12/17/2020 12:32:27 12/17/1912/16/2020 CMP, serum or plasm a microalbumin ratio 26.3 Not Available [address], [address], 12/17/2020 12:32:27 12/17/1912/16/2020 HbA1c (hemo globi n A1c), blood A1C 7.2 high Not Available [facility] [address] [place] [address], [address], 12/17/2020 18:34:17 12/17/19 21 12/16/2020 CBC w/ auto diff white blood count 7.0 Not Available Not Available 11:18:18 12/17/19 21 12/16/2020 CBC w/ auto diff hemoglobin 12.9 Not Available Not Available 1 11:18:18 12/17/19 21 12/16/2020 CBC w/ auto diff platelet count 277 Not Available Not Available 11:18:18 06/08/19 23 06/07/2022 lipid panel , serum total cholesterol 198 Not Available [facility] [address] [place], [address], 06/10/2022 12:22:12 06/08/19 23 06/07/2022 lipid panel , serum triglyceride s 264 high Not Available [facility] [address] [place], [address], 06/10/2022 12:22:12 06/08/19 23 06/07/2022 lipid panel , serum HDL 42 Not Available [facility] [address] [place], [address], 06/10/2022 12:22:12 06/08/19 23 06/07/2022 lipid panel , serum LDL 110 high Not Available [facility] [address] [place], [address], 06/10/2022 12:22:12 06/08/19 23 06/07/2022 HbA1c (hemo globi n A1c), blood creatinine 0.69 Not Available [facility] [address] [facility] [place], [address], 06/08/2022 17:54:33 06/08/19 23 06/07/2022 HbA1c (hemo globi n A1c), blood ALT 21 Not Available [facility] [address] [facility] [place], [address], 06/08/2022 17:54:33 06/08/19 23 06/07/2022 HbA1c (hemo globi n A1c), blood white blood count 6.8 Not Available [place] [facility] [address] [facility] [place], [address], 06/08/2022 17:54:33 06/08/19 23 06/07/2022 HbA1c (hemo globi n A1c), blood hemoglobin 13.2 Not Available [facility] [address] [place] [address] [place], [address], 06/08/2022 17:54:33 06/08/19 23 06/07/2022 HbA1c (hemo globi n A1c), blood platelet count 281 Not Available [place] [facility] [address] [place] [address] [place], [address], 06/08/2022 17:54:33 06/08/19 23 06/07/2022 HbA1c (hemo globi n A1c), blood hemoglobin A1C 8.1 high Not Available [place] [facility] [address] [place] [address] [place], [address], 06/08/2022 17:54:33 06/08/19 23 06/07/2022 CBC creatinine 0.69 Not Availa ble [place] [facility] [address] [place] [address] [place], [address], 06/08/2022 12:35:02 06/08/19 23 06/07/2022 CBC ALT 21 Not Available [place] [facility] [address] [place] [address] [place], [address], 06/08/2022 12:35:02 06/08/19 23 06/07/2022 CBC white blood count 6.8 Not Available [place] [facility] [address] [place] [address] [place], [address], 06/08/2022 12:35:02 06/08/19 23 06/07/2022 CBC hemoglobin 13.2 Not Availa ble [place] [facility] [address] [place] [address] [place], [address], 06/08/2022 12:35:02 06/08/19 23 06/07/2022 CBC platelet count 281 Not Available [place] [facility] [address] [place] [address] [place], [address], 06/08/2022 12:35:02 06/08/19 23 06/07/2022 CBC hemoglobin A1C 8.1 high Not Available [place] [facility] [address] [place] [address] [place], [address], 06/08/2022 12:35:02 06/08/19 23 06/07/2022 CMP, serum or plasm a creatinine 0.69 Not Available [facility] [address] [place] [address] [place], [address], 06/08/2022 12:17:03 06/08/19 23 06/07/2022 CMP, serum or plasm a ALT 21 Not Available [facility] [address] [place] [address] [place], [address], 06/08/2022 12:17:03 06/08/19 23 06/07/2022 CMP, serum or plasm a white blood count 6.8 Not Available [place] [facility] [address] [place] [address] [place], [address], 06/08/2022 12:17:03 06/08/19 23 06/07/2022 CMP, serum or plasm a hemoglobin 13.2 Not Available [facility] [address] [place] [address] [place], [address], 06/08/2022 12:17:03 06/08/19 23 06/07/2022 CMP, serum or plasm a platelet count 281 Not Available [place] [facility] [address] [place] [address] [place], [address], 06/08/2022 12:17:03 06/08/19 23 06/07/2022 CMP, serum or plasm a hemoglobin A1C 8.1 high Not Available [place] [facility] [address] [place] [address] [place], [address], 06/08/2022 12:17:03 12/21/1912/20/2022 lipid panel , serum creatinine 0.54 Not Available [address] [place], [address], 12/20/2022 13:44:01 12/21/1912/20/2022 lipid panel , serum ALT 23 Not Available [address] [place], [address], 12/20/2022 13:44:01 12/21/1912/20/2022 lipid panel , serum total cholesterol 218 high Not Available [address] [place], [address], 12/20/2022 13:44:01 12/21/1912/20/2022 lipid panel , serum triglyceride s 179 high Not Available [address] [place], [address], 12/20/2022 13:44:01 12/21/1912/20/2022 lipid panel , serum HDL 46 Not Available [address] [place], [address], 12/20/2022 13:44:01 12/21/1912/20/2022 lipid panel , serum LDL 136 high Not Available [address] [place], [address], 12/20/2022 13:44:01 12/21/1912/20/2022 CMP, serum or plasm a creatinine 0.54 Not Available [address], [address], 12/20/2022 13:36:20 12/21/1912/20/2022 CMP, serum or plasm a ALT 23 Not Available [address] [place], [address], 12/20/2022 13:36:20 12/21/19 23 12/20/2022 CMP, serum or plasm a total cholesterol 218 high Not Available [address] [place], [address], 12/20/2022 13:36:20 12/21/1912/20/2022 CMP, serum or plasm a triglyceride s 179 high Not Available [facility] [address] [place], [address], 12/20/2022 13:36:20 12/21/1912/20/2022 CMP, serum or plasm a HDL 46 Not Available [facility] [address] [place], [address], 12/20/2022 13:36:20 12/21/1912/20/2022 CMP, serum or plasm a LDL 136 high Not Available [address] [place], [address], 12/20/2022 13:36:20 12/21/1912/20/2022 CBC white blood count 7.8 Not Available [facility] [address] [place], [address], 12/20/2022 11:11:36 12/21/1912/20/2022 CBC hemoglobin 13.6 Not Availa ble [facility] [address] [place], [address], 12/20/2022 11:11:36 12/21/1912/20/2022 CBC platelet count 285 Not Available [facility] [address] [place] [address], [address], 12/20/2022 11:11:36 Result Notes None recorded. Problems Name Status Onset Date Resolution Date Notes Provider Name and Address Organization Details Recorded Time Type 2 diabetes mellitus Active 03/31/19 21 Cheng Christian MD [address] [place], [address] , [facility] [employer] [facility] 11/17/2021 11:36:31 Essential hypertension Active 03/31/19 21 Cheng Christian MD [address] [place], [address] , [facility] 11/17/2021 11:36:21 Hyperlipidemia Active 03/31/19 Cheng Christian MD [address] [place], [address] , [facility] 11/17/2021 11:36:26 Problem Notes None recorded. Procedures Surgical History Date Name Laterality Status Provider Name and Address Organization Details Recorded Time repair of umbilical hernia completed Arin العلي NP [address] [facility] [place], [address], [facility] 04/22/2020 16:33:51 Imaging Results None recorded. [...] Not Available Not Available Not Avai lable lovastati n 20 mg tablet take 1 [...] Available No t Available Vitals Date Recorded Heart rate Systolic blood pressure Diastolic blood pressure Provider Name and Address Organization Details Last Updated DateTime 04/22/2020 71 /min 143 mm[Hg] 73 mm[Hg] Arin العلي NP [address] [place], [address], [facility] [employer] 04/22/2020 16:31:14 Date Recorded Body weight Systolic blood pressure Diastolic blood pressure Provider Name and Address Organization Details Last Updated DateTime 12/24/2020 56020.31 g 137 mm[Hg] 74 mm[Hg] Cheng Christian MD [address] [place], [address], [facility] [employer] 12/24/2020 12:02:56 Date Recorded Body height Body mass index (BMI) Body weight Body temperature Oxygen saturation Oxygen saturation in Arterial blood by Pulse oximetry Heart rate Systolic blood pressure Diastolic blood pressure Provider Name and Address Organization Details Last Updated DateTime 3 154.94 cm 22.4 kg/m2 78331.3 4 g 97 [degF] 99 % 99 % 73 /min 159 mm[Hg] 75 mm[Hg] Alia marshall [facility] [employer] 3 10:17:53 Date Recorded Respiratory rate Systolic blood pressure Diastolic blood pressure Provider Name and Address Organization Details Last Updated DateTime 12/26/2022 18 /min 120 mm[Hg] 70 mm[Hg] Sophie Chester, [employer] [address] [place], [address], [place] - [employer] [facility] 12/26/2022 10:52:50 Date Recorded Systolic blood pressure Diastolic blood pressure Provider Name and Address Organization Details Last Updated DateTime 09/18/2014 112 mm[Hg] 67 mm[Hg] Not Available [employer] 0 09/09/2019 12:57:28 Date Recorded Systolic blood pressure Diastolic blood pressure Provider Name and Address Organization Details Last Updated DateTime 07/18/2018 114 mm[Hg] 68 mm[Hg] Not Available [employer] 0 09/09/2019 12:57:28 Date Recorded Systolic blood pressure Diastolic blood pressure Provider Name and Address Organization Details Last Updated DateTime 06/19/2018 117 mm[Hg] 63 mm[Hg] Not Available [employer] 0 09/09/2019 12:57:28 Date Recorded Systolic blood pressure Diastolic blood pressure Provider Name and Address Organization Details Last Updated DateTime 12/04/2013 118 mm[Hg] 66 mm[Hg] Not Available [employer] 0 09/09/2019 12:57:28 Date Recorded Systolic blood pressure Diastolic blood pressure Provider Name and Address Organization Details Last Updated DateTime 08/27/2015 122 mm[Hg] 76 mm[Hg] Not Available [employer] 0 09/09/2019 12:57:28 Date Recorded Systolic blood pressure Diastolic blood pressure Provider Name and Address Organization Details Last Updated DateTime 08/18/2014 124 mm[Hg] 62 mm[Hg] Not Available [employer] 0 09/09/2019 12:57:28 Date Recorded Systolic blood pressure Diastolic blood pressure Provider Name and Address Organization Details Last Updated DateTime 04/25/2018 124 mm[Hg] 71 mm[Hg] Not Available [employer] 0 09/09/2019 12:57:28 Date Recorded Systolic blood pressure Diastolic blood pressure Provider Name and Address Organization Details Last Updated DateTime 02/16/2015 130 mm[Hg] 66 mm[Hg] Not Available [employer] 0 09/09/2019 12:57:28 Date Recorded Systolic blood pressure Diastolic blood pressure Provider Name and Address Organization Details Last Updated DateTime 01/16/2019 130 mm[Hg] 71 mm[Hg] Not Available [employer] 0 09/09/2019 12:57:29 Date Recorded Systolic blood pressure Diastolic blood pressure Provider Name and Address Organization Details Last Updated DateTime 05/04/2017 132 mm[Hg] 67 mm[Hg] Not Available [facility] 0 09/09/2019 12:57:29 Date Recorded Systolic blood pressure Diastolic blood pressure Provider Name and Address Organization Details Last Updated DateTime 10/20/2016 134 mm[Hg] 77 mm[Hg] Not Available [employer] 0 09/09/2019 12:57:29 Date Recorded Systolic blood pressure Diastolic blood pressure Provider Name and Address Organization Details Last Updated DateTime 11/02/2017 138 mm[Hg] 73 mm[Hg] Not Available [employer] 0 09/09/2019 12:57:29 Date Recorded Systolic blood pressure Diastolic blood pressure Provider Name and Address Organization Details Last Updated DateTime 08/28/2017 146 mm[Hg] 68 mm[Hg] Not Available [facility] 0 09/09/2019 12:57:29 Date Recorded Systolic blood pressure Diastolic blood pressure Provider Name and Address Organization Details Last Updated DateTime 04/04/2016 147 mm[Hg] 76 mm[Hg] Not Available [facility] 0 09/09/2019 12:57:29 Date Recorded Systolic blood pressure Diastolic blood pressure Systolic blood pressure Diastolic blood pressure Provider Name and Address Organization Details Last Updated DateTime 03/16/2017 148 mm[Hg] 74 mm[Hg] 158 mm[Hg] 77 mm[Hg] Not Available [facility] 0 12:57:29 Date Recorded Systolic blood pressure Diastolic blood pressure Provider Name and Address Organization Details Last Updated DateTime 03/28/2018 149 mm[Hg] 77 mm[Hg] Not Available [employer] 0 09/09/2019 12:57:29 Date Recorded Systolic blood pressure Diastolic blood pressure Provider Name and Address Organization Details Last Updated DateTime 02/28/2018 151 mm[Hg] 71 mm[Hg] Not Available [facility] 0 09/09/2019 12:57:29 Date Recorded Systolic blood pressure Diastolic blood pressure Provider Name and Address Organization Details Last Updated DateTime 03/16/2017 156 mm[Hg] 75 mm[Hg] Not Available [facility] 0 09/09/2019 12:57:29 Date Recorded Systolic blood pressure Diastolic blood pressure Provider Name and Address Organization Details Last Updated DateTime 03/16/2017 156 mm[Hg] 75 mm[Hg] Not Available [facility] 0 09/09/2019 12:57:29 Date Recorded Systolic blood pressure Diastolic blood pressure Provider Name and Address Organization Details Last Updated DateTime 11/09/2017 157 mm[Hg] 76 mm[Hg] Not Available [facility] 0 09/09/2019 12:57:29 Date Recorded Systolic blood pressure Diastolic blood pressure Provider Name and Address Organization Details Last Updated DateTime 07/01/2021 135 mm[Hg] 63 mm[Hg] Cheng Christian MD [address] [place], [address], [facility] [employer] 07/01/2021 10:25:41 Social History Question Answer Notes LastModified by [employer] Details LastModified Time Tobacco Smoking Status Never Smoker Arin العلي NP [address] [place], [address], [facility] [employer] 04/22/2020 16:33:06 What Is Your Level Of Alcohol Consumption? None león Information not available 11/18/2021 Are You Currently [...] Anxious, Or Unable To Sleep At Night)? [id number] león Information not available 11/18/2021 Sex: Female Functional Status Question Answer Note LastModified by [employer] Details LastModified Time What is your [...] Encounter Start Date Encounter Closed Date Diagnosis/Indication [id number] Cheng Christian MD [facility] [address] [place] [phone] 03/03/2020 18:09:37 03/03/2020 19:45:48 Type 2 diabetes mellitus without complication Essential hypertension [id number] Cheng Christian MD [facility] [address] [place] [phone] 03/31/2020 17:49:01 03/31/2020 19:54:51 Type 2 diabetes mellitus without complication [id number] Arin العلي NP [facility] [address] [place] [phone] 04/22/2020 15:46:16 04/22/2020 19:43:48 Counseling [id number] Cheng Christian MD [facility] [address] [place] [phone] 06/30/2020 17:15:23 06/30/2020 19:21:39 Type 2 diabetes mellitus without complication [id number] Cheng Christian MD [facility] [address] [place] [phone] 12/24/2020 09:58:24 12/24/2020 10:21:37 Type 2 diabetes mellitus without complication [id number] Cheng Christian MD [facility] [address] [place] [id number] 07/01/2021 09:56:33 07/01/2021 10:51:57 Type 2 diabetes mellitus without complication Screening mammography [id number] Cheng Christian MD [facility] [address] [place] [phone] 11/18/2021 11:00:26 11/22/2021 15:12:45 Type 2 diabetes mellitus without complication Essential hypertension Hyperlipidemia [id number] Cheng Christian MD [facility] [address] [place] [id number] 06/13/2022 14:36:38 06/13/2022 15:01:36 Type 2 diabetes mellitus without complication Essential hypertension Hyperlipidemia [id number] Sophie Chester NP [facility] [address] [place] [address] [address] 12/26/2022 10:13:32 12/26/2022 11:05:01 Type 2 diabetes mellitus Essential hypertension Hyperlipidemia Health Concerns Section Related Observation LastModified by Organization Detai ls LastModified Time None Recorded Concern Status LastModified by Organization Details LastModified Time None Recorded Advance Directives Directive None Recorded Payers Encounter Date Sequence Insurance Name Policy Number Policy Paredes Covered Member ID Paredes Member ID Guarantor Name 06/13/2022 SLIDING FEE SCHEDULE - DISCOUNT Irlanda Jo-Ann 11/18/2021 SLIDING FEE SCHEDULE - DISCOUNT Irlanda Jo-Ann 07/01/2021 SLIDING FEE SCHEDULE - DISCOUNT Irlanda Jo-Ann 12/24/2020 SLIDING FEE SCHEDULE - DISCOUNT Irlanda [place] 06/30/2020 SLIDING FEE SCHEDULE - DISCOUNT Irlanda [place] 04/22/2020 SLIDING FEE SCHEDULE - DISCOUNT Irlanda Jo-Ann 03/31/2020 SLIDING FEE SCHEDULE - DISCOUNT Irlanda [place] 03/03/2020 SLIDING FEE SCHEDULE - DISCOUNT Irlanda Jo-Ann Notes Date Note Type Note Provider Name and Address Organization Details Recorded Time 03/03/2020 text/html HPI Notes: recov ering and not eating well, needs glucometer Cheng Christian MD [address] [place], [address], [facility] [employer] 03/03/2020 19:43:02 03/31/2020 text/html HPI Notes: has a glucometer, reading are just about normal for a nondiabetic Cheng Christian MD [address] [place], [address], [facility] [employer] 03/31/2020 19:53:29 04/22/2020 text/html HPI Notes: 69 y. o. F established patient with history of DM2, HLD, HTN presents for discussion about pap smear and mammogram recommendations She was originally referred as a JOSE patient but does not qualify due to her age Last pap 12 years ago was normal, and the pap prior to that was also normal She reports a history of what sounds like cystocele or uterine prolapse - evaluated previously by Bhakti and recommended to use a cream or gel to lubricate the area, which has helped She still notices some irritation and dryness occasionally, but not today Has never had a mammogram Denies family history of breast cancer or any current breast symptoms Has been approved for what sounds like APC, but lost her card Feeling very well without fever, chills, weight changes, dizziness, falls, chest pain, palpitations, shortness of breath, trouble urinating or defacating Arin العلي NP [address] [place], [address], [facility] [employer] 04/22/2020 16:59:03 06/30/2020 text/html HPI Notes: Diabe jody F/U Reported by patient. Review finger sticks: fastin; pre dinner: Labs: last A1C result: 6.9 Context: taking aspirin daily; not missing doses of medications; concerns? three meals a day? 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 Notes: unemployed out of home, [place] [address] [place] [address], [phone], [facility] [employer] 06/30/2020 17:55:53 12/24/2020 text/html HPI Notes: activ e at home, eating well, compliance good, last optometry 2+ years ago, had JOSE Christian MD [address] [place], [address], [facility] [employer] 12/24/2020 12:08:18 07/01/2021 text/html HPI Notes: Diabe jody F/U Reported by patient. Review finger sticks: fasting: ; pre dinner: Labs: last A1C result: 7.2 Context: taking aspirin daily; not missing doses of medications; side effects from medications; concerns? three meals a day? 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 Notes: two meals a day, needs optometry and mammogram, not sob, no angina, ama de casa Cheng Christian MD [address] [place], [address], [facility] [employer] 07/01/2021 10:30:33 12/26/2022 text/html HPI Notes: Hypertension IM/FM Reported by patient. 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 Declines iFOBT, mammo. Pap no longer needed. Sophie Chester, [facility] [address] [place], [address], [facility] - [facility] 12/26/2022 14:31:52 OBGyn Episode No OBEpisode recorded.
[2023-03-06 12:44] LABS: Alanine Aminotransferase* 22 U/L (4-35); Alkaline Phosphatase* 121 U/L (40-150); Anion Gap 11 mEq/L (7-15); Aspartate Amino Transferase* 26 U/L (12-35); Bilirubin Total* 0.4 mg/dL (0.1-1.5); Blood Urea Nitrogen* 13 mg/dL (7-30); Carbon Dioxide* 23 mmol/L (20-32); Glucose* 250 mg/dL (60-115); Lipase* 102 U/L (23-300); Total Protein* 7.8 g/dL (6.0-8.3)
[2023-03-06 12:45] LABS: Calcium* 9.6 mg/dL (8.4-10.6)
[2023-03-06 13:00] LABS: Creatinine* 0.4 mg/dL (0.5-1.5); Est. Creatinine Clearance* 35.99; Estimated Glomerular Filt Rate 104 ml/min
[2023-03-06 13:40] LABS: Appearance Urine Clear (Clear); Bilirubin Urine Negative (Negative); Blood Urine Negative (Negative); Color Urine Yellow (Yellow); Glucose Urine 2+ (Negative); Ketones Urine Trace (Negative); Leukocyte Esterase Urine Trace (Negative); Nitrite Urine Negative (Negative); Protein Urine Negative (Negative); Specific Gravity Urine 1.025 (1.000-1.030); Urobilinogen Urine 0.2 (0.2-1.0)
[2023-03-06 13:49] LABS: RBC Urine 0-2 (0-2); Squamous Epithelial Cell Urine Few (None-Few)
[2023-03-06] MEDS: KETOROLAC 15 MG/ML inj IVP (13:53)
[2023-03-06 13:55] VITALS: BP 148/73; PULSE 69; RESP 18; O2SAT 96
== END 2023-03-06 14:34 | disposition home or self-care (01) ==
PROVIDERS: Emergency Provider Student in an Organized Health Care Education/Training Program
DX: R10.12 Left upper quadrant pain (principal); R07.81 Pleurodynia
CPT/HCPCS: 36415; 74177; 80053; 81001; 82565; 83690; 85025; 87086; 87186; 96374; 99283; 99284; J1885; Q9967